=== PATIENT | male | born 1945 | race African-American/Black ===

== ENCOUNTER 2016-08-28 16:23 | Emergency (ER) | payer MEDICARE, MEDICAID ==
[~2016-08-28 16:23] MED LIST: Iopamidol 370 76% 100 ML VIAL ONE
[2016-08-28 16:47] LABS: Bilirubin Negative (Negative); Blood, Urine Trace (Negative); Clarity Hazy (Clear); Glucose, Urine (Dipstick) Negative (Negative); Leukocyte Negative (Negative); Nitrite Negative (Negative); Protein, Urine (Dipstick) Negative (Neg-Trace); Specific Gravity, Urine 1.015 (1.005-1.030); Urobilinogen 0.2 mg/dL (0.2-1.0); pH, Urine 8.5 (5.0-9.0)
[2016-08-28 16:48] LABS: Bacteria/HPF Rare-Few HPF (None Seen); Crystals/HPF 2+ AMORPH PHOS HPF (Negative); RBC/HPF 0-3 HPF (0-3); Squamous Epithelial 0-3 HPF (0-3); WBC/HPF None Seen HPF (0-3)
[2016-08-28] MEDS ORDERED: Ondansetron HCl/PF 4 MG/2 ML Vial ONE (16:54)
[2016-08-28] MEDS ORDERED: diphenhydrAMINE HCl 50 MG/ML 1 ML VIAL ONE (16:54)
[2016-08-28 17:06] LABS: #Basophils 0.1 thou/uL (0.0-0.2); #Lymphocytes 0.7 thou/uL (1.20-3.40); #Monocytes 0.9 thou/uL (0.11-0.59); #Neutrophils 8.8 thou/uL (1.40-6.50); %Basophils 0.7 % (0.0-1.0); %Eosinophils 0.2 % (0.0-10.0); %Lymphocytes 6.5 % (21.0-51.0); %Monocytes 8.4 % (0.0-10.0); %Neutrophils 84.1 % (42.0-75.0); Hemoglobin 14.2 g/dL (14.0-18.0); Mean Corpuscular HGB CONC 32.7 g/dL (32.0-36.0); Mean Corpuscular Hemoglobin 30.9 pg (27.0-31.0); Mean Corpuscular Volume 94.3 fl (80.0-94.0); Mean Platelet Volume 6.4 fL (7.4-10.4); Platelet Count 226 thou/uL (130-400); RBC Distribution Width 13.4 % (11.5-14.5); Red Blood Cell (RBC) Count 4.61 mill/uL (4.70-6.10); White Blood Cell (WBC) Count 10.4 thou/uL (4.8-10.8)
[2016-08-28] MEDS ORDERED: Morphine Sulfate 2 MG/ML SYRINGE ONE (17:16)
[2016-08-28 17:21] LABS: ALT (SGPT) 25 U/L (8-55); AST (SGOT) 22 U/L (5-34); Albumin 4.4 g/dL (3.4-4.8); Alkaline Phosphatase 63 U/L (40-150); Anion Gap 17 mmol/L (10-20); BUN (Urea Nitrogen) 15 mg/dL (8.4-25.7); Bilirubin, Total 0.7 mg/dL (0.2-1.2); Calc. Creatinine Clearance 0 mL/min (70-130); Calcium 9.1 mg/dL (7.8-10.44); Carbon Dioxide 18 mmol/L (23-31); Chloride 112 mmol/L (98-107); Estimated GFR-MDRD 73; Globulin 3.6 g/dL (2.4-3.5); Glucose 123 mg/dL (83-110); Lipase 16 U/L (8-78); Potassium 3.7 mmol/L (3.5-5.1); Sodium 143 mmol/L (136-145)
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
== END 2016-08-28 19:15 | disposition short-term general hospital (02) ==
LOC: MADERS 16:23
DX: N13.1 Hydronephrosis with ureteral stricture, not elsewhere classified (principal); I10 Essential (primary) hypertension; I25.10 Atherosclerotic heart disease of native coronary artery without angina pectoris; Z79.899 Other long term (current) drug therapy; Z79.82 Long term (current) use of aspirin
CPT/HCPCS: 74177; 80053; 81003; 81015; 83605; 83690; 85025; 96374; 96375; 96376; J1200; J2270; J2405

== ENCOUNTER 2018-11-13 16:49 | Outpatient (CLI) | payer MEDICARE, MEDICAID ==
--- NOTE | 2018-11-13 17:15 | RAD ---
Radiograph left knee 4 views: HISTORY: 73-year-old male with "swelling of left knee joint" FINDINGS: There is a suprapatellar soft tissue density mass. There are metallic tendon anchor is at the superio r pole of the patella. No high-grade joint space narrowing. Small marginal osteophytes at medial and lateral compartments, but not at the patellofemoral compartment. No fracture or dislocation. IMPRESSION: 1. Status post surgical repair at quadriceps tendon insertion site. 2. Suprapatellar mass. Possibilities include hematoma, seroma, and abscess.
== END 2018-11-13 16:50 | disposition home or self-care (01) ==
LOC: MADRAD 16:49
PROVIDERS: ATTEND Family Medicine
DX: M25.462 Effusion, left knee (principal); M25.862 Other specified joint disorders, left knee; Z98.890 Other specified postprocedural states

== ENCOUNTER 2022-05-24 08:13 | Outpatient (CLI) | payer OTHER | END 2022-05-24 08:14 | disposition home or self-care (01) | LOC: MADULT 08:13 | PROVIDERS: ATTEND Urology | DX: N13.5 Crossing vessel and stricture of ureter without hydronephrosis (principal); Z87.442 Personal history of urinary calculi | CPT/HCPCS: 76770 ==